=== PATIENT | female | born 1990 | race Two or more races ===

== ENCOUNTER → 2025-04-16 | Outpatient (CLI) | payer BC, SELFPAY ==
[2025-04-15 16:42] LABS: HCG Qualitative,Urine Negative
--- NOTE | 2025-04-16 13:57 | XR_ITS ---
Examination: CT abdomen with intravenous contrast CT pelvis with intravenous contrast 2-D coronal reconstructions 2-D sagittal reconstructions Date and time of exam:April 16, 2025 1405 hours, comparison December 15, 2023 INDICATIONS: Lower abdominal pain months, 7.3 cm right ovarian cystic mass on CT pelvis December 15, 2023. CTDI: vol (mGy) 18.3 DLP: (mGycm) 509 Technique: Multiple axial sections of the abdomen and pelvis have been obtained. 64 slice high-resolution scanner used. 3 mm axial sections have been obtained, post intravenous injection 60 cc [id number] 2-D sagittal, coronal reconstructions obtained. Low dose protocols were performed. One or more of the following dose reduction techniques were used; automated exposure control, adjustment of the mA and/or KV according to patient size, use of iterative reconstruction technique. Findings: No focal liver or splenic lesions No gallstones No pancreatic or adrenal mass. No renal or ureteral calculi, no hydronephrosis. No bowel obstruction Normal appendix 8 cm anterior pelvic cyst Normal anteverted uterus No bladder mass or bladder calculi The osseous structures are intact IMPRESSION: 8 cm right ovarian cyst
== END | disposition home or self-care (01) ==
PROVIDERS: Referring Provider Student in an Organized Health Care Education/Training Program; Visit Provider Student in an Organized Health Care Education/Training Program
DX: N83.201 Unspecified ovarian cyst, right side (principal); Z32.00 Encounter for pregnancy test, result unknown
CPT/HCPCS: 74177; 81025; A4649; Q9967